=== PATIENT | male | born 1935 ===

== ENCOUNTER 2016-12-06 12:16 | Outpatient (CLI) | payer MEDICARE ==
[2016-12-06 12:52] LABS: INR-International Normal Ratio 1.9; Prothrombin Time 22.1 SEC (12.0-14.7)
[2016-12-06 13:01] LABS: Hemoglobin A1c 6.1 % (4.0-6.0)
== END 2016-12-06 12:17 | disposition home or self-care (01) ==
LOC: NAV LABSP 12:16
DX: E11.42 Type 2 diabetes mellitus with diabetic polyneuropathy (principal); Z79.01 Long term (current) use of anticoagulants; Z86.718 Personal history of other venous thrombosis and embolism
CPT/HCPCS: 83036; 85610

== ENCOUNTER 2017-03-21 10:00 | Outpatient (CLI) | payer MEDICARE | END 2017-03-21 10:01 | disposition home or self-care (01) | LOC: NAV LABSP 10:00 | PROVIDERS: ATTEND Family Medicine | DX: E11.42 Type 2 diabetes mellitus with diabetic polyneuropathy (principal) | CPT/HCPCS: 83036 ==